=== PATIENT | female | born 1995 | race Caucasian/White ===

== ENCOUNTER 2024-03-06 14:49 | Outpatient (AMB) | payer BC, SELFPAY ==
--- NOTE | 2024-03-06 14:51 | A.OFFPC_ITS ---
Vital Signs 03/06/24 14:58 Height 5 ft 5.83 in Weight 153 lb 2 oz BMI 24.8 BP 104/64 Blood Pressure Location Lt brachial Position Sitting Pulse 76 Pulse Source Pulse Oximeter Temp 98.1 F Temp Source Oral Pulse Oximetry (%) 100 Oxygen Delivery Method Room Air Intake Visit Reasons: EST CARE Intake Note: New Patient visit Allergies No Known Allergies Allergy (Verified 03/06/24 14:55) Medication List - Last Reconciled 03/07/24 by Sravanthi Sanchez MD drospirenone (contraceptive) (Slynd) tabs PO fexofenadine (Karen Allergy) 180 mg PO DAILY Tobacco use date assessed: 03/06/24 Dental Screening Dental Screen Date: 03/06/24 Did you have a dental visit in the last 12 months?: Yes Did you have a dental problem in the last 6 months where you did not have access to dental care?: No Was dental information given to patient?: Patient has dentist HPI HPI Comments History of Present Illness Details 28 year old female with a past medical h istory of seasonal/environmental allergies presenting to [facility] She notes uncontrolled allergy symptoms. Takes regular karen once daily, karen D once daily. Nose bleeds with nasal spray. She started allergy shots at [facility] and has a consult pending with local allergy. Was following with machine pan greaser. Needs a new one ROS CONSTITUTIONAL: Denies weight loss, fever and chills. HEENT: Denies changes in vision and hearing. RESPIRATORY: Denies SOB and cough. CV: Denies palpitations and CP GI: Denies abdominal pain, nausea, vomiting and diarrhea. : Denies dysuria and urinary frequency. MSK: Denies new myalgia and joint pain. SKIN: Denies rash and pruritus. NEUROLOGICAL: Denies headache PSYCHIATRIC: Denies recent changes in mood. PHYSICAL EXAM: GENERAL: Alert and oriented x 3. NAD EYES: EOMI. Anicteric. HENT: Moist mucous membranes. No scleral icterus. No cervical lymphadenopathy. LUNGS: Clear to auscultation bilaterally. CARDIOVASCULAR: Regular rate and rhythm. No murmur. No JVD. ABDOMEN: Soft, non-tender +bs EXTREMITIES: No edema. Non-tender. SKIN: No rashes or lesions. Warm. NEUROLOGIC: No focal neurological deficits. CN II-XII grossly intact PSYCHIATRIC: Cooperative. 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 How often do you have a drink containing alcohol?: 2-4 times a month 2. How many drinks containing alcohol do you have on a typical day when you are drinking?: 3 or 4 3. How often do you have six or more drinks on one occasion?: Less than monthly Total Score: 4 Physical exam (Primary Care) Vital Signs: Last Vital Signs Temp 98.1 F 03/06/24 14:58 Pulse 76 03/06/24 14:58 BP 104/64 03/06/24 14:58 Pulse Ox 100 03/06/24 14:58 Oxygen Delivery Method Room Air 03/06/24 14:58 BMI result Body Mass Index 24.8 Tobacco/Smoking Status: Tobacco use Status Tobacco use date assessed 03/06/24 03/06/24 15:02 Patient Tobacco Use Status Never used Tobacco 03/06/24 15:02 Tobacco use type 03/06/24 15:02 e-Cigarette/Vaping Use Never Used 03/06/24 15:02 Assessment and Plan Assessment & Plan (1) Seasonal allergies: Code(s): J30.2 - Other seasonal allergic rhinitis (2) Environmental allergies: Code(s): Z91.09 - Other allergy status, other than to drugs and biological substances Orders: Orders Lipid Panel 03/06/24 Z13.0 - Encounter for screening for diseases of the blood and blood-forming organs and certain disorders involving the immune mechanism, Z13.220 - Encounter for screening for lipoid disorders, Z13.228 - Encounter for screening for other metabolic disorders Complete Blood Count Auto Diff 03/06/24 Z13.0 - Encounter for screening for diseases of the blood and blood-forming organs and certain disorders involving the immune mechanism, Z13.220 - Encounter for screening for lipoid disorders, Z13.228 - Encounter for screening for other metabolic disorders Comprehensive Met. Panel 03/06/24 Z13.0 - Encounter for screening for diseases of the blood and blood-forming organs and certain disorders involving the immune mechanism, Z13.220 - Encounter for screening for lipoid disorders, Z13.228 - Encounter for screening for other metabolic disorders TSH reflex Free T4 03/06/24 Z13.0 - Encounter for screening for diseases of the blood and blood-forming organs and certain disorders involving the immune mechanism, Z13.220 - Encounter for screening for lipoid disorders, Z13.228 - En counter for screening for other metabolic disorders Coding Level of Care Code New Pt Level 4 (68632) Diagnoses Seasonal allergies J30.2 Environmental allergies Z91.09
[2024-03-06 14:58] VITALS: BP 104/64; PULSE 76; TEMP 36.7; O2SAT 100; BMI 24.8
== END 2024-03-06 15:41 | disposition home or self-care (01) ==
PROVIDERS: Visit Provider Internal Medicine
DX: J30.2 Other seasonal allergic rhinitis (principal); Z91.09 Other allergy status, other than to drugs and biological substances
CPT/HCPCS: 99204

== ENCOUNTER 2024-03-06 15:32 | Outpatient (REF) | payer BC, SELFPAY ==
[2024-03-06 18:11] LABS: MANUAL DIFF FLAG NO
[2024-03-06 18:20] LABS: Basophils Percent Auto 0.7 % (0-2); Eosinophils Absolute Auto 0.4 X10*3/uL (0.0-0.4); Eosinophils Percent Auto 6.1 % (0-4); Hematocrit 42.1 % (37.0-47.0); Hemoglobin 14.2 g/dl (12.0-16.0); Imm Gran Abs Auto 0.02 X10*3/uL (0.00-0.03); Imm Gran Pct Auto 0.3 % (0.0-0.4); Lymphocytes Absolute Auto 1.7 X10*3/uL (1.2-4.9); Lymphocytes Percent Auto 29.3 % (20-40); Mean Corpuscular HGB Conc 33.7 g/dl (31.0-35.0); Mean Corpuscular Hemoglobin 29.6 pg (27.0-33.0); Mean Corpuscular Volume 87.9 fL (80.0-98.0); Mean Platelet Volume 10.3 fL (9.4-12.3); Monocytes Absolute Auto 0.4 X10*3/uL (0.1-1.2); Monocytes Percent Auto 7.1 % (2-11); Neutrophils Absolute Auto 3.3 x10*3/uL (2.0-8.3); Neutrophils Percent Auto 56.5 % (45-73); Platelet Count 274 X10*3/uL (160-400); Red Blood Count 4.79 X10*6/uL (4.20-5.50); Red Cell Distribution Width 12.5 % (11.0-16.0); White Blood Count 5.8 X10*3/uL (4.8-10.8)
[2024-03-06 18:41] LABS: Alanine Aminotransferase 21 U/L (0-31); Albumin Level 4.5 g/dL (3.5-5.0); Alkaline Phosphatase 54 U/L (39-117); Anion Gap 11 (12-20); Aspartate Amino Transferase 19 U/L (5-31); Bilirubin Total 0.8 mg/dL (0.0-1.0); Blood Urea Nitrogen 6 mg/dL (9-16); Calcium 9.6 mg/dL (8.4-10.2); Carbon Dioxide 26 mmol/L (22-29); Chloride 108 mmol/L (96-108); Cholesterol 87 mg/dL (<200); Estimated Glomerular Filt Rate > 60; Glucose Random 80 mg/dL (60-115); HDL Cholesterol 42 mg/dL (>40); LDL Cholesterol Calculated 32 mg/dL (<100); Potassium 3.7 mmol/L (3.3-5.1); Sodium 141 mmol/L (135-145); Total Protein 6.9 g/dL (6.5-8.0); Triglycerides 67 mg/dL (<150)
== END 2024-03-06 15:33 | disposition home or self-care (01) ==
LOC: HO.WFDLDS 15:32
PROVIDERS: Visit Provider Internal Medicine
DX: Z13.220 Encounter for screening for lipoid disorders (principal); Z13.228 Encounter for screening for other metabolic disorders; Z13.0 Encounter for screening for diseases of the blood and blood-forming organs and certain disorders involving the immune mechanism; Z13.6 Encounter for screening for cardiovascular disorders
CPT/HCPCS: 36415; 80053; 80061; 84443; 85025

== ENCOUNTER 2024-09-21 13:46 | Outpatient (AMB) | payer BC, SELFPAY ==
--- NOTE | 2024-09-21 13:56 | MHC.PC.OV ---
Vital Signs 09/21/24 14:00 Height 5 ft 5.83 in Weight 151 lb 6 oz BMI 24.6 BP 120/62 Blood Pressure Location Rt brachial Position Sitting Pulse 92 Pulse Source Pulse Oximeter Pulse Oximetry (%) 97 Oxygen Delivery Method Room Air Intake Visit Reasons: CPE Intake Note: Physical Allergies No Known Allergies Allergy (Verified 09/21/24 13:56) Tobacco use date assessed: 09/21/24 Dental Screening Dental Screen Date: 03/06/24 HPI HPI Comments History of Present Illness Details 28 year old female with a past medical history of seasonal/environmental allergies presenting to establish care Allergies/atopy: Following with [facility]. Restarted allergy shots. Takes regular margaux once daily, margaux D once daily. Nose bleeds with nasal spray. Was following with die presser-needs to reschedule. She believes she had an appt scheduled for aug/sep. On POP due to h/o migraine however does not like the irregular periods and would like to try combination Migraine: she is on topamax. Follows with neurology. Recently increased dosing. MRI about 6 years ago ROS CONSTITUTIONAL: Denies weight loss, fever and chills. HEENT: Denies changes in vision and hearing. RESPIRATORY: Denies SOB and cough. CV: Denies palpitations and CP GI: Denies abdominal pain, nausea, vomiting and diarrhea. : Denies dysuria and urinary frequency. MSK: Denies new myalgia and joint pain. SKIN: Denies rash and pruritus. NEUROLOGICAL: Denies headache PSYCHIATRIC: Denies recent changes in mood. PHYSICAL EXAM: GENERAL: Alert and oriented x 3. NAD EYES: EOMI. Anicteric. HENT: Moist mucous membranes. No scleral icterus. No cervical lymphadenopathy. LUNGS: Clear to auscultation bilaterally. CARDIOVASCULAR: Regular rate and rhythm. No murmur. No JVD. ABDOMEN: Soft, non-tender +bs EXTREMITIES: No edema. Non-tender. SKIN: No rashes or lesions. Warm. NEUROLOGIC: No focal neurological deficits. CN II-XII grossly intact PSYCHIATRIC: Cooperative. 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 1. Little interest or pleasure in doing things: not at all 2. Feeling down, depressed, or hopeless: not at all 3. Trouble falling or staying asleep, or sleeping too much: not at all 4. Feeling tired or having little energy: not at all 5. Poor appetite or overeating: not at all 6. Feeling bad about yourself - or that you are a failure or have let yourself or your family down: not at all 7. Trouble concentrating on things, such as reading the newspaper or watching television: not at all 8. Moving or speaking so slowly that other people could have noticed. Or the opposite - being so fidgety or restless that you have been moving around a lot more than usual: not at all 9. Thoughts that you would be better off or of hurting yourself in some way: not at all Total score: 0 Source: Developed by Drs. Aleks Weaver, Mana Lebron, Josh Dasilva and colleagues, with an educational kevin from [employer]. Thrive Questionnaire Date Thrive assessed: 09/04/24 I am a: Patient What is your living situation today?: I have a steady place to live Within the past 12 months, did the food you bought not last and you didn't have the money to get more?: Never true Within the past 12 months, did you worry whether your food would run out before you got money to buy more?: Never true Do you have trouble paying for medicines?: No Do you have trouble getting transportation to medical appointments?: No Do you have trouble paying your heating and electricity bill?: No Do you have trouble taking care of your child, family member or friend?: No Do you have trouble with day-to-day activities such as bathing, preparing meals, shopping, managing finances, etc.?: No Are you currently unemployed and looking for a job?: No Are you interested in more education?: No Please select the resources that you would like help with: None Currently or been in a relationship where the following occur: No concerns reported THRIVE Score: 0 AUDIT C Alcohol Use Questionnaire (AUDIT-C) 1. How often do you have a drink containing alcohol?: Monthly or less 2. How many drinks containing alcohol do you have on a typical day when you are drinking?: 3 or 4 3. How often do you have six or more drinks on one occasion?: Less than monthly Total Score: 3 CHAR-7 AMB Questionnaire CHAR-7 Feeling nervous, anxious, or on edge: 1 = Several days Not being able to stop or control worryin = Not at all Worrying too much about different things: 0 = Not at all Trouble relaxin = Not at all Being so restless that it is hard to sit still: 0 = Not at all Becoming easily annoyed or irritable: 0 = Not at all Feeling afraid as if something awful might happen: 0 = Not at all Total CHAR-7 score (0-4 normal; 5-9 mild; 10-14 moderate; 15-21 severe): 1 Source: Developed by Drs. Aleks Weaver, Mana Lebron, Josh Dasilva and colleagues, with an educational kevin from [employer]. Physical exam (Primary Care) Vital Signs: Last Vital Signs Pulse 92 09/21/24 14:00 BP 120/62 09/21/24 14:00 Pulse Ox 97 09/21/24 14:00 Oxygen Delivery Method Room Air 09/21/24 14:00 BMI result Body Mass Index 24.6 Tobacco/Smoking Status: Tobacco use Status Tobacco use date assessed 09/21/24 09/21/24 13:58 Patient Tobacco Use Status Never used Tobacco 09/21/24 13:58 Tobacco use type 03/06/24 15:32 e-Cigarette/Vaping Use Never Used 09/21/24 13:58 PHQ-9: PHQ-9 Score PHQ-9: Total score 0 09/21/24 13:58 Thrive Assessment: Date of Thrive Assessment Date Thrive assessed 09/04/24 09/21/24 13:58 Currently or been in a relationship where the following occur: No concerns reported Coding Level of Care Code Est Pt Prev Care 18-39y(95138) Diagnoses Physical exam Z00.00 Assessment & Plan Assessment & Plan (1) Physical exam: Code(s): Z00.00 - Encounter for general adult medical examination without abnormal findings Category: Medical Plan: Preventive measures for age discussed Declines flu vaccination today Labs ordered for employment She will call collections clerk to schedule/reschedule Orders: Orders Complete Blood Count Auto Diff Today R35.0 - Frequency of micturition, Z13.0 - Encounter for screening for diseases of the blood and blood-forming organs and certain disorders involving the immune mechanism, Z13.220 - Encounter for screening for lipoid disorders, Z13.228 - Encounter for screening for other metabolic disorders Hemoglobin A1c Today R35.0 - Frequency of micturition, Z13.0 - Encounter for screening for diseases of the blood and blood-forming organs and certain disorders involving the immune mechanism, Z13.220 - Encounter for screening for lipoid disorders, Z13.228 - Encounter for screening for other metabolic disorders Lipid Panel Today R35.0 - Frequency of micturition, Z13.0 - Encounter for screening for diseases of the blood and blood-forming organs and certain disorders involving the immune mechanism, Z13.220 - Encounter for screening for lipoid disorders, Z13.228 - Encounter for screening for other metabolic disorders Comprehensive Met. Panel Today R35.0 - Frequency of micturition, Z13.0 - Encounter for screening for diseases of the blood and blood-forming organs and certain disorders involving the immune mechanism, Z13.220 - Encounter for screening for lipoid disorders, Z13.228 - Encounter for screening for other metabolic disorders Medications: New topiramate (Topamax) 50 mg PO BID 180 tabs 3RF norgestimate-ethinyl estradiol 0.18/0.215/0.25 mg-25 mcg 1 tab PO DAILY 84 tabs 3RF Discontinued norethindrone (contraceptive) start day 1 of menstrual cycle Discontinued Reason: Doctor's Order 0.35 mg PO DAILY 84 tabs 3RF
[2024-09-21 14:00] VITALS: BP 120/62; PULSE 92; O2SAT 97; BMI 24.6
== END 2024-09-21 14:19 | disposition home or self-care (01) ==
PROVIDERS: PCP Internal Medicine; Visit Provider Internal Medicine
DX: Z00.00 Encounter for general adult medical examination without abnormal findings (principal)

== ENCOUNTER → 2024-09-21 13:46 | Outpatient (BNVA) | payer BC, SELFPAY | PROVIDERS: PCP Internal Medicine; Visit Provider Internal Medicine ==

== ENCOUNTER 2024-09-21 14:24 | Outpatient (REF) | payer BC, SELFPAY ==
[2024-09-21 17:46] LABS: MANUAL DIFF FLAG NO
[2024-09-21 17:59] LABS: Basophils Percent Auto 0.4 % (0-2); Eosinophils Absolute Auto 0.1 X10*3/uL (0.0-0.4); Eosinophils Percent Auto 2.2 % (0-4); Hematocrit 45.3 % (37.0-47.0); Hemoglobin 15.3 g/dl (12.0-16.0); Imm Gran Abs Auto 0.01 X10*3/uL (0.00-0.03); Imm Gran Pct Auto 0.2 % (0.0-0.4); Lymphocytes Absolute Auto 1.5 X10*3/uL (1.2-4.9); Lymphocytes Percent Auto 29.9 % (20-40); Mean Corpuscular HGB Conc 33.8 g/dl (31.0-35.0); Mean Corpuscular Hemoglobin 29.6 pg (27.0-33.0); Mean Corpuscular Volume 87.6 fL (80.0-98.0); Mean Platelet Volume 10.2 fL (9.4-12.3); Monocytes Absolute Auto 0.3 X10*3/uL (0.1-1.2); Monocytes Percent Auto 6.1 % (2-11); Neutrophils Absolute Auto 3.1 x10*3/uL (2.0-8.3); Neutrophils Percent Auto 61.2 % (45-73); Platelet Count 272 X10*3/uL (160-400); Red Blood Count 5.17 X10*6/uL (4.20-5.50); Red Cell Distribution Width 12.9 % (11.0-16.0); White Blood Count 5.1 X10*3/uL (4.8-10.8)
[2024-09-21 18:10] LABS: Alanine Aminotransferase 21 U/L (0-31); Albumin Level 4.8 g/dL (3.5-5.0); Alkaline Phosphatase 58 U/L (39-117); Anion Gap 8 (12-20); Aspartate Amino Transferase 21 U/L (5-31); Bilirubin Total 0.7 mg/dL (0.0-1.0); Blood Urea Nitrogen 7 mg/dL (9-16); Calcium 9.4 mg/dL (8.4-10.2); Carbon Dioxide 25 mmol/L (22-29); Chloride 112 mmol/L (96-108); Cholesterol 109 mg/dL (<200); Estimated Glomerular Filt Rate > 60; Glucose Random 79 mg/dL (60-115); HDL Cholesterol 45 mg/dL (>40); LDL Cholesterol Calculated 39 mg/dL (<100); Potassium 3.6 mmol/L (3.3-5.1); Sodium 141 mmol/L (135-145); Total Protein 7.7 g/dL (6.5-8.0); Triglycerides 128 mg/dL (<150)
[2024-09-22 07:54] LABS: Estimated Average Glucose 94 mg/dL; Hemoglobin A1C 121.2467 umol/L; Hemoglobin A1c % 4.9 % (<6.0); Total Hemoglobin (HGBA1C) 3966.9706 umol/L
== END 2024-09-21 14:25 | disposition home or self-care (01) ==
LOC: HO.WFDLDS 14:24
PROVIDERS: Visit Provider Internal Medicine
DX: Z13.228 Encounter for screening for other metabolic disorders (principal); Z13.220 Encounter for screening for lipoid disorders; Z13.0 Encounter for screening for diseases of the blood and blood-forming organs and certain disorders involving the immune mechanism; R35.0 Frequency of micturition; Z13.1 Encounter for screening for diabetes mellitus
CPT/HCPCS: 36415; 80053; 80061; 83036; 85025

== ENCOUNTER 2024-11-24 13:41 | Outpatient (AMB) | payer BC, SELFPAY ==
--- NOTE | 2024-11-24 14:51 | MHC.OFFWIV ---
Intake Vital Signs 11/24/24 14:53 Weight 153 lb BP 118/76 Blood Pressure Location Rt brachial Position Sitting Pulse 68 Pulse Source Pulse Oximeter Pulse Oximetry (%) 97 Oxygen Delivery Method Room Air Intake Visit Reasons: EP Blood blister on toe? Intake Note: Patient here for blood blister on right great toe that she noticed yesterday. Patient Tobacco Use Status: Never used Tobacco Allergies No Known Allergies Allergy (Verified 11/24/24 14:54) Do you need a note to return to daycare/school/sports/work: No HPI HPI Comments History of Present Illness Details This is a 28-year-old female with a past medical history of seasonal allergies and migraine headaches presenting for evaluation of a blood blister she first noted on the bottom of her right foot yesterday. 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 Patient denies any overt injury or trauma to her right foot. Patient states ambulation is somewhat uncomfortable for her. 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 [employer] Current occupational exposures/hazards: No Cognitive needs: No Hearing needs: No Vision needs: Yes (glasses) Review of Systems Const All systems reviewed & are unremarkable except as noted in HPI and below Denies body aches, Denies chills, Denies daytime sleepiness and Denies fatigue Eyes Reports no additional complaints ENT Reports no additional complaints Resp Reports no additional complaints GI Reports no additional complaints Reports no additional complaints Musc Details: pain bottom RGT Skin/Breast Details: blood blister bottom of RGT Neuro Reports no additional complaints Psych Reports no additional complaints Endo Reports no additional complaints and Denies fatigue Taj/Lymph Reports no additional complaints Aller/Immun Reports no additional complaints Physical Exam Vital Signs: Last Vital Signs Pulse 68 11/24/24 14:53 BP 118/76 11/24/24 14:53 Pulse Ox 97 11/24/24 14:53 Oxygen Delivery Method Room Air 11/24/24 14:53 Const General: cooperative, healthy appearing, comfortable, no acute distress, well developed, alert, awake and Physically active Nutritional Appearance: average body habitus Orientation/consciousness: patient oriented x3 Limitations: no limitations Skin Other: 2cm x 0.75cm hyperpigmented hemorrhagic bulla on the plantar surface of the RGT, distal phalanx that is not raised or fluctuant; mild tenderness to direct palpation, no surrounding erythema or induration Neuro General: patient oriented x3 Extrem Other: no pain to direct palpation of the RGT dorsal or plantar surface; normal capillary refill RGT General: Yes capillary refill normal Psych Appearance: grossly normal Mental Status: mental status grossly normal Insight: Good insight present (Psych) Judgement: Good judgement present (Psych) Assessment & Plan Assessment & Plan (1) Blood blister: Comment: there is no evidence of a secondary cellulitis or complication at this time. Patient is encouraged to obtain a moleskin type Band-Aid with central hole to alleviate pressure when ambulating. Code(s): T14.8XXA - Other injury of unspecified body region, initial encounter Plan: Attempt to alleviate pressure on the right great toe when possible, watch for any signs of infection and follow up only as needed. You may use Tylenol or ibuprofen as needed for any discomfort that you have. Coding Level of Care Code Est Pt Level 3 (23877) Diagnoses Blood blister T14.8XXA Time Spent (min) 20
[2024-11-24 14:53] VITALS: BP 118/76; PULSE 68; O2SAT 97
== END 2024-11-24 15:24 | disposition home or self-care (01) ==
PROVIDERS: PCP Internal Medicine; Visit Provider Physician Assistant
DX: T14.8XXA Other injury of unspecified body region, initial encounter (principal)

== ENCOUNTER 2025-04-02 10:25 | Outpatient (AMB) | payer BC, SELFPAY ==
--- NOTE | 2025-04-02 10:45 | MHC.PC.OV ---
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 Started [employer]. Started to hurt a few training session in. She has tried NSAIDs,, ice/heat, stretching without relief. Allergies/atopy: Following with [facility]. Restarted allergy shots. Takes regular margaux once daily, margaux D once daily. Nose bleeds with nasal spray. Migraine: she is on topamax. Follows with neurology. Recently increased dosing. MRI about 6 years ago Following with [employer] ROS CONSTITUTIONAL: Denies weight loss, fever and chills. HEENT: Denies changes in vision and hearing. RESPIRATORY: Denies SOB and cough. CV: Denies palpitations and CP GI: Denies abdominal pain, nausea, vomiting and diarrhea. : Denies dysuria and urinary frequency. MSK: Denies new myalgia and joint pain. SKIN: Denies rash and pruritus. NEUROLOGICAL: Denies headache PSYCHIATRIC: Denies recent changes in mood. PHYSICAL EXAM: GENERAL: Alert and oriented x 3. NAD EYES: EOMI. Anicteric. HENT: Moist mucous membranes. No scleral icterus. No cervical lymphadenopathy. LUNGS: Clear to auscultation bilaterally. CARDIOVASCULAR: Regular rate and rhythm. No murmur. No JVD. ABDOMEN: Soft, non-tender +bs EXTREMITIES: No edema. Non-tender. SKIN: No rashes or lesions. Warm. NEUROLOGIC: No focal neurological deficits. CN II-XII grossly intact PSYCHIATRIC: Cooperative. 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 [employer] Current occupational exposures/hazards: No Cognitive needs: No Hearing needs: No Vision needs: Yes (glasses) Questionnaire Thrive Questionnaire Date Thrive assessed: 09/04/24 I am a: Patient What is your living situation today?: I have a steady place to live Within the past 12 months, did the food you bought not last and you didn't have the money to get more?: Never true Within the past 12 months, did you worry whether your food would run out before you got money to buy more?: Never true Do you have trouble paying for medicines?: No Do you have trouble getting transportation to medical appointments?: No Do you have trouble paying your heating and electricity bill?: No Do you have trouble taking care of your child, family member or friend?: No Do you have trouble with day-to-day activities such as bathing, preparing meals, shopping, managing finances, etc.?: No Are you currently unemployed and looking for a job?: No Are you interested in more education?: No Please select the resources that you would like help with: None Currently or been in a relationship where the following occur: No concerns reported THRIVE Score: 0 AUDIT C Alcohol Use Questionnaire (AUDIT-C) 1. How often do you have a drink containing alcohol?: Monthly or less 2. How many drinks containing alcohol do you have on a typical day when you are drinking?: 1 or 2 3. How often do you have six or more drinks on one occasion?: Never Total Score: 1 Physical exam (Primary Care) Vital Signs: Last Vital Signs Temp 98.6 F 04/02/25 10:46 Pulse 72 04/02/25 10:46 Resp 12 04/02/25 10:46 BP 114/68 04/02/25 10:46 Pulse Ox 98 04/02/25 10:46 Oxygen Delivery Method Room Air 04/02/25 10:46 Tobacco/Smoking Status: Tobacco use Status Tobacco use date assessed 04/02/25 04/02/25 10:48 Patient Tobacco Use Status Never used Tobacco 04/02/25 10:48 Tobacco use type 03/06/24 15:32 e-Cigarette/Vaping Use Never Used 04/02/25 10:48 Thrive Assessment: Date of Thrive Assessment Date Thrive assessed 09/04/24 04/02/25 10:48 Currently or been in a relationship where the following occur: No concerns reported Coding Level of Care Code Est Pt Level 4 (04334) Diagnoses Right hip pain M25.551 Assessment & Plan Assessment & Plan (1) Right hip pain: Code(s): M25.551 - Pain in right hip Category: Medical Plan Right hip pain-xray ordered. Referral to orthopedics Prednisone, voltaren sent Orders: Orders XR hip RT min 2V 04/02/25 M25.551 - Pain in right hip Referrals Orthopedics Referral M25.551 - Pain in right hip Medications: New prednisone 40 mg (2 x 20 mg) PO DAILY 10 tabs 0RF diclofenac sodium 1% (Voltaren Arthritis Pain) apply to single knee, ankle, foot; for foot includes sole/toes/top of foot 4 grams topical QID 100 grams 0RF
[2025-04-02 10:46] VITALS: BP 114/68; PULSE 72; RESP 12; TEMP 37; O2SAT 98
== END 2025-04-02 11:08 | disposition home or self-care (01) ==
LOC: HO.HMCFM 10:26
PROVIDERS: PCP Internal Medicine; Visit Provider Internal Medicine
DX: M25.551 Pain in right hip (principal)

== ENCOUNTER 2025-06-10 15:26 | Outpatient (AMB) | payer BC, SELFPAY ==
--- NOTE | 2025-06-10 15:41 | MHC.OFFVIS ---
Intake Visit Reasons: 6mnth Allergies No Known Allergies Allergy (Verified 04/02/25 10:45) Medication List - Last Reconciled 06/10/25 by Ashley Phoenix MD diclofenac sodium 1% (Voltaren Arthritis Pain) 4 grams topical QID fexofenadine (Karen Allergy) 180 mg PO DAILY norgestimate-ethinyl estradiol 0.18/0.215/0.25 mg-0.025 mg 1 tab PO DAILY prednisone 40 mg (2 x 20 mg) PO DAILY topiramate (Topamax) 50 mg PO BID HPI Comments Details: he patient is a 29-year-old female presenting with migraine. She takes Topamax daily to manage her migraines efficiently and uses Sumatriptan for acute episodes when needed. The patient confirmed that her current treatment is effective and does not require a medication refill at this time. She also uses oral contraceptive pills regularly, but no complications or concerns related to this were discussed. It can be noted that the patient's migraine condition seems stable, as no new symptoms or issues were reported. 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 Normal attention. Normal spontaneous speech, fluency, and comprehension. No obvious issues with mood and memory. Affect is appropriate. Cranial Nerves: CN II: Visual sanchez full to confrontation, visual acuity intact. CN III, IV, : Pupils equal, round, reactive to light and accommodation. Extraocular movements are normal. CN V: Facial sensation is normal. CN VII: Facial movements symmetrical. CN VIII: Hearing intact to bedside conversation is normal. CN IX, X: Palate elevates symmetrically. CN XI: Shoulder shrug and head turn symmetrical. CN XII: Tongue midline without atrophy or fasciculations. Extrapyramidal: Full facial expressions and blinking. No rigidity. Movements are appropriate with no tremor or abnormality. Speech: Normal; no dysarthria or tremor. Assessment & Plan Assessment & Plan (1) Migraine without aura: Comment: NCV/EMG UE 11/23/19 THIS IS A NORMAL STUDY. MRI WO at [facility] [place] in January 2019: WNL except ventricles are on smaller side. Code(s): G43.009 - Migraine without aura, not intractable, without status migrainosus Category: Medical Qualifiers: Status migrainosus presence: without status migrainosus Intractability: not intractable Qualified Code(s): G43.009 - Migraine without aura, not intractable, without status migrainosus Plan Impression migraine without aura Recommendations: 1. Topiramate 50 mg 1 at night 2. Sumatriptan 50 mg 1 a day as needed During the consultation, I reviewed the patient's current migraine management strategy. She is effectively using Topamax daily, with Sumatriptan for acute episodes. The patient is content with the current medication regimen, which is effective at managing her migraines. We discussed the scheduled follow-up in one year and advised her on contacting the clinic if any changes or concerns arise earlier. Regarding her use of oral contraceptive pills, no adverse interactions with her migraine medication were reported. We agreed to continue the current treatment plan without modifications. Coding Level of Care Code Est Pt Level 3 (99306) Diagnoses Migraine without aura and without status migrainosus, not intractable G43.009 Status migrainosus presence: without status migrainosus Intractability: not intractable
== END 2025-06-10 15:47 | disposition home or self-care (01) ==
LOC: HO.HSM 15:27
PROVIDERS: PCP Internal Medicine; Referring Provider Internal Medicine Sports Medicine; Visit Provider Psychiatry & Neurology Neurology
DX: G43.009 Migraine without aura, not intractable, without status migrainosus (principal)
CPT/HCPCS: 99213